=== PATIENT | female | born 1965 | race Two or more races ===

== ENCOUNTER 2023-12-24 16:06 | Inpatient (IN) | payer MEDICAID ==
[~2023-12-24] VITALS: Ht 200.7 cm; Wt 96.2 kg
[2023-12-24 16:24] LABS: BASOPHILS % (AUTO) 0.5 % (0.0-2.0); EOSINOPHILS # (AUTO) 0.1 K/uL (0.0-0.7); EOSINOPHILS % (AUTO) 1.2 % (0.0-6.0); HEMATOCRIT 39 % (33-45); HEMOGLOBIN 12.5 g/dL (11.5-14.8); LYMPHOCYTES # (AUTO) 1.3 K/uL (0.8-4.8); LYMPHOCYTES % (AUTO) 14.9 % (20.0-44.0); MEAN CORPUSCULAR HEMOGLOBIN 25 PG (26.0-33.0); MEAN CORPUSCULAR HGB CONC 33 g/dl (31.0-36.0); MEAN CORPUSCULAR VOLUME 78 fL (82-100); MONOCYTES # (AUTO) 0.5 K/uL (0.1-1.30); MONOCYTES % (AUTO) 6.1 % (2.0-12.0); NEUTROPHILS # (AUTO) 6.7 K/uL (1.8-8.9); NEUTROPHILS % (AUTO) 77.3 % (43.0-81.0); PLATELET COUNT (AUTO) 280 K/uL (150-450); RED BLOOD CELL COUNT(AUTO) 4.94 MIL/uL (4.0-5.2); RED CELL DISTRIBUTION WIDTH 14.6 % (11.5-15.0); WHITE BLOOD COUNT (AUTO) 8.7 K/uL (4.3-11.0)
[2023-12-24 16:40] LABS: CALCIUM, SERUM 9.9 mg/dL (8.5-10.1); CARBON DIOXIDE 26 mmol/L (21-32); CHLORIDE 107 mmol/L (98-107); CREATININE 0.9 mg/dL (0.6-1.3); GLUCOSE 104 mg/dL (74-106); SODIUM SERUM 142 mmol/L (136-145); UREA NITROGEN, BLOOD 10 mg/dL (7-18)
[2023-12-24] MEDS: ACETAMINOPHEN 325 MG TABLET PO ONE (18:00)
[2023-12-24] MEDS ORDERED: ACETAMINOPHEN ES 500 MG TABLET ONE (18:19)
[2023-12-24] MEDS ORDERED: CLON0.1T PO (19:45)
[2023-12-24] MEDS ORDERED: CLON0.5T4 PO (19:45)
[2023-12-24] MEDS ORDERED: LAMO150T6 PO (19:45)
[2023-12-24] MEDS ORDERED: ALBU6.7H9 IH (19:45)
[2023-12-24] MEDS ORDERED: VALS160T29 PO (19:45)
[2023-12-24] MEDS ORDERED: RIZA10TA98 PO (19:45)
[2023-12-24] MEDS ORDERED: ESCI20TA PO (19:45)
[2023-12-24] MEDS: ACETAMINOPHEN ES 500 MG TABLET PO ONE (19:57)
[2023-12-24] MEDS ORDERED: NITROGLYCERIN 0.4 MG/TAB BOTTLE SL ONE (20:00)
[2023-12-24] MEDS ORDERED: MAG HYDROX/AL HYDROX/SIMETH 30 ML UDC PO PRN (20:00)
[2023-12-24] MEDS ORDERED: Z GUARD REMEDY 4 OZ OINT TP PRN (20:00)
[2023-12-24] MEDS ORDERED: ONDANSETRON HCL/PF 4 MG/2 ML VIAL IVP PRN (20:00)
[2023-12-24] MEDS ORDERED: MAGNESIUM HYDROXIDE 30 ML UDC PO PRN (20:00)
[2023-12-24] MEDS ORDERED: ACETAMINOPHEN 325 MG TABLET PO PRN (20:00)
[2023-12-24] MEDS ORDERED: clonazePAM 0.5 MG TABLET PO PRN (21:00)
[2023-12-24] MEDS ORDERED: RIZATRIPTAN BENZOATE 10 MG PO PRN (21:00)
[2023-12-24] MEDS ORDERED: ALBUTEROL SULFATE 8 GM HFA.AER.AD IH PRN (21:00)
[2023-12-24 22:00] VITALS: BP 132/76; TEMP 98.4
[2023-12-24] MEDS: LamoTRIgine 100 MG TABLET PO SCH (23:02)
[2023-12-24] MEDS: VALSARTAN 80 MG TABLET PO SCH (23:03)
[2023-12-25] VITALS: BP 127/71; TEMP 98.2; O2SAT 98
[2023-12-25 04:00] VITALS: BP 143/79; TEMP 98.2; O2SAT 99
[2023-12-25] MEDS ORDERED: ALBUTEROL FS 2.5 MG/0.5 ML VIAL.NEB NEB PRN (07:30)
[2023-12-25 07:42] LABS: BASOPHILS # (AUTO) 0.1 K/uL (0.0-0.2); BASOPHILS % (AUTO) 0.6 % (0.0-2.0); EOSINOPHILS # (AUTO) 0.1 K/uL (0.0-0.7); EOSINOPHILS % (AUTO) 1.5 % (0.0-6.0); HEMATOCRIT 37 % (33-45); HEMOGLOBIN 11.9 g/dL (11.5-14.8); LYMPHOCYTES # (AUTO) 2.2 K/uL (0.8-4.8); LYMPHOCYTES % (AUTO) 25.7 % (20.0-44.0); MEAN CORPUSCULAR HEMOGLOBIN 25 PG (26.0-33.0); MEAN CORPUSCULAR HGB CONC 33 g/dl (31.0-36.0); MEAN CORPUSCULAR VOLUME 78 fL (82-100); MONOCYTES # (AUTO) 0.6 K/uL (0.1-1.30); MONOCYTES % (AUTO) 7.4 % (2.0-12.0); NEUTROPHILS # (AUTO) 5.6 K/uL (1.8-8.9); NEUTROPHILS % (AUTO) 64.8 % (43.0-81.0); PLATELET COUNT (AUTO) 294 K/uL (150-450); RED BLOOD CELL COUNT(AUTO) 4.68 MIL/uL (4.0-5.2); RED CELL DISTRIBUTION WIDTH 14.5 % (11.5-15.0); WHITE BLOOD COUNT (AUTO) 8.6 K/uL (4.3-11.0)
[2023-12-25 08:00] VITALS: BP 155/105; TEMP 97.9; O2SAT 97
[2023-12-25 08:28] LABS: ALANINE AMINOTRANSFERASE 23 U/L (12-78); ALBUMIN 3.2 g/dL (3.4-5.0); ALKALINE PHOSPHATASE 146 U/L (46-116); ASPARTATE AMINOTRANSFERASE 14 U/L (15-37); BILIRUBIN,DIRECT 0.1 mg/dL (0.0-0.2); BILIRUBIN,TOTAL 0.6 mg/dL (0.2-1.0); CALCIUM, SERUM 9.3 mg/dL (8.5-10.1); CARBON DIOXIDE 26 mmol/L (21-32); CHLORIDE 109 mmol/L (98-107); CREATININE 0.7 mg/dL (0.6-1.3); GLUCOSE 81 mg/dL (74-106); MAGNESIUM 2.1 mg/dL (1.8-2.4); PHOSPHORUS 3.2 mg/dL (2.5-4.9); POTASSIUM 4.2 mmol/L (3.5-5.1); SODIUM SERUM 143 mmol/L (136-145); TOTAL PROTEIN, SERUM 6.7 g/dL (6.4-8.2); UREA NITROGEN, BLOOD 13 mg/dL (7-18)
[2023-12-25] MEDS: PANTOPRAZOLE 40 MG TABLET.DR PO SCH (08:29)
[2023-12-25] MEDS: ESCITALOPRAM OXALATE (10 MG) 10 MG TABLET PO SCH (09:06)
[2023-12-25] MEDS: CLONIDINE HCL 0.1 MG TABLET PO SCH (09:06)
[2023-12-25] MEDS: ASPIRIN 81 MG TAB.CHEW PO SCH (09:06)
[2023-12-25] MEDS: METOPROLOL SUCCINATE 50 MG TAB.SR.24H PO SCH (10:48)
[2023-12-25] MEDS ORDERED: IV NS 0.9% 250 ML IV ONE (11:48)
[2023-12-25] MEDS ORDERED: IOHEXOL-350 100 ML VIAL IV ONE (11:48)
[2023-12-25] MEDS ORDERED: CT SWABBABLE VALVE TRANS SET 1 EA INFUS.SET MC ONE (11:48)
[2023-12-25] MEDS ORDERED: METOPROLOL TARTRATE INJ 5 MG/5 ML AMPUL ONE (11:52)
[2023-12-25] MEDS ORDERED: NITROGLYCERIN 0.4 MG/TAB BOTTLE ONE (11:52)
[2023-12-25] MEDS: METOPROLOL TARTRATE INJ 5 MG/5 ML AMPUL IVP PRN (11:54)
[2023-12-25 12:00] VITALS: BP 146/79; TEMP 97; O2SAT 97
[2023-12-25] MEDS: NITROGLYCERIN 0.4 MG/TAB BOTTLE SL ONE (12:00)
[2023-12-25 16:00] VITALS: BP 159/84; TEMP 98.1; O2SAT 96
[2023-12-25] MEDS ORDERED: GADOTERATE MEGLUMINE 10 MMOL/20 ML VIAL IV ONE (18:21)
[2023-12-25 20:00] VITALS: BP 102/74; TEMP 98.1; O2SAT 95
[2023-12-26] VITALS: BP 132/77; TEMP 98.2; O2SAT 97
[2023-12-26 04:00] VITALS: BP 145/91; TEMP 98.2; O2SAT 98
[2023-12-26 06:48] LABS: BASOPHILS % (AUTO) 0.4 % (0.0-2.0); EOSINOPHILS # (AUTO) 0.2 K/uL (0.0-0.7); EOSINOPHILS % (AUTO) 1.8 % (0.0-6.0); HEMATOCRIT 38 % (33-45); HEMOGLOBIN 12.2 g/dL (11.5-14.8); LYMPHOCYTES # (AUTO) 2.5 K/uL (0.8-4.8); LYMPHOCYTES % (AUTO) 26.9 % (20.0-44.0); MEAN CORPUSCULAR HEMOGLOBIN 25 PG (26.0-33.0); MEAN CORPUSCULAR HGB CONC 32 g/dl (31.0-36.0); MEAN CORPUSCULAR VOLUME 79 fL (82-100); MONOCYTES # (AUTO) 0.8 K/uL (0.1-1.30); MONOCYTES % (AUTO) 8.5 % (2.0-12.0); NEUTROPHILS # (AUTO) 5.7 K/uL (1.8-8.9); NEUTROPHILS % (AUTO) 62.4 % (43.0-81.0); PLATELET COUNT (AUTO) 306 K/uL (150-450); RED BLOOD CELL COUNT(AUTO) 4.85 MIL/uL (4.0-5.2); RED CELL DISTRIBUTION WIDTH 14.5 % (11.5-15.0); WHITE BLOOD COUNT (AUTO) 9.2 K/uL (4.3-11.0)
[2023-12-26 07:03] LABS: CALCIUM, SERUM 10.3 mg/dL (8.5-10.1); CREATININE 0.9 mg/dL (0.6-1.3); PHOSPHORUS 3.4 mg/dL (2.5-4.9); POTASSIUM 3.9 mmol/L (3.5-5.1)
[2023-12-26 08:00] VITALS: BP 185/94; TEMP 98.1; O2SAT 98
[2023-12-26 12:00] VITALS: BP 140/78; TEMP 98.1; O2SAT 98
[2023-12-26] MEDS ORDERED: LAMO200T2 PO (12:37)
[2023-12-26] MEDS ORDERED: METO50TA7 PO (12:37)
== END 2023-12-26 14:58 | disposition home or self-care (01) | DRG 53 ==
LOC: ER 16:42 → TELE1 20:14 → MEDSG1 12-26 09:59
PROVIDERS: ADMIT Nurse Practitioner Family; ATTEND Student in an Organized Health Care Education/Training Program
DX: G40.909 Epilepsy, unspecified, not intractable, without status epilepticus (principal); G93.6 Cerebral edema; G93.89 Other specified disorders of brain; E66.9 Obesity, unspecified; M94.0 Chondrocostal junction syndrome [Tietze]; F41.9 Anxiety disorder, unspecified; W19.XXXA Unspecified fall, initial encounter; Y04.0XXA Assault by unarmed brawl or fight, initial encounter; F32.A Depression, unspecified; F43.10 Post-traumatic stress disorder, unspecified; I10 Essential (primary) hypertension; J45.909 Unspecified asthma, uncomplicated; Z88.0 Allergy status to penicillin; G47.33 Obstructive sleep apnea (adult) (pediatric); Z68.23 Body mass index [BMI] 23.0-23.9, adult; R90.89 Other abnormal findings on diagnostic imaging of central nervous system; Y93.9 Activity, unspecified; Y92.89 Other specified places as the place of occurrence of the external cause
CPT/HCPCS: 36415; 70450-TC; 70490-TC; 70553-TC; 71045-TC; 75574; 80048-TC; 80076-TC; 83735-TC; 84100-TC; 84443-TC; 84484-TC; 85025-TC; 93307-TC; A9575; G0378; J3490; J7050; J7060; Q9967